=== PATIENT | female | born 1935 | race Caucasian/White ===

== ENCOUNTER → 2017-09-10 | Outpatient (CLI) | payer OTHER, MEDICAID | LOC: M.CT 12:31 → M.LAB 13:00 → M.CT 14:00 | PROVIDERS: Internal Medicine Cardiovascular Disease | DX: I71.2 Thoracic aortic aneurysm, without rupture (principal); R91.1 Solitary pulmonary nodule ==

== ENCOUNTER → 2017-10-21 | Outpatient (CLI) | payer OTHER, MEDICAID | LOC: M.ULTRA 10:10 | DX: K76.9 Liver disease, unspecified (principal); K77 Liver disorders in diseases classified elsewhere ==

== ENCOUNTER → 2017-10-30 | Outpatient (CLI) | payer OTHER, MEDICAID ==
[2017-10-30 10:35] LABS: CALCIUM 9.2 mg/dL (8.5-10.1); POTASSIUM 4.1 mmol/L (3.5-5.1)
== END ==
LOC: M.MRI 10:12 → M.LAB 10:30 → M.MRI 11:30
PROVIDERS: Family Medicine
DX: D35.02 Benign neoplasm of left adrenal gland (principal); I10 Essential (primary) hypertension

== ENCOUNTER → 2018-02-10 | Outpatient (CLI) | payer OTHER, MEDICAID ==
--- NOTE | 2018-02-10 15:44 | 2DMMODE ---
[place] [address] 2 D/M-MODE ECHOCARDIOGRAM Name: TJ POZO Room: [facility]#: [id number] Admission: 02/10/18 Attend Phys: Frank Engle, Discharge: Date of : 35 Date of Service: 02/10/18 1544 Report #: [id number] THIS REPORT FOR: //name// APPROVED REPORT Study performed: 02/10/2018 13:46:16 EXAM: Comprehensive 2D, Doppler, and color-flow Echocardiogram Patient Location: Out-Patient Status: routine BSA: 1.92 HR: 60 bpm BP: 140/78 mmHg Other Information Study Quality: Good Indications Aortic Valve Disease 2D Dimensions LVEF(%): 54.42 (>50%) IVSd: 11.71 (7-11mm) LVOT Diam: 20.93 (18-24mm) LVDd: 50.61 mm PWd: 7.92 (7-11mm) Ascending Ao: 48.29 (22-36mm) LVDs: 36.27 (25-40mm) Aortic Root: 23.70 mm [place]'s LVEF: 54.42 % Volumes Left Atrial Volume (Systole) LA ESV Index: 14.40 mL/m2 Aortic Valve AoV Peak Celestine.: 1.39 m/s AO Peak Gr.: 7.77 mmHg LVOT Max P.91 mmHg AO Mean Gr.: 3.51 mmHg LVOT Mean P.56 mmHg LVOT Max V: 0.85 m/s AO V2 VTI: 29.34 cm LVOT Mean V: 0.58 m/s JESSICA (VTI): 2.70 cm2 LVOT V1 VTI: 23.06 cm AI Hartley: 1.86 m/s2 AI PHT: 671.84 [place] [address] 2 D/M-MODE ECHOCARDIOGRAM Name: TJ POZO Room: [facility]#: [id number] Admission: 02/10/18 Attend Phys: Frank Engle, Discharge: Date of : 35 Date of Service: 02/10/18 1544 Report #: [id number] E/A Ratio: 0.81 MV Decel. Time: 242.42 ms MV E Max Celestine.: 0.71 m/s MV PHT: 70.30 ms MVA (PHT): 3.13 cm2 TDI E/Lateral E': 7.10 E/Medial E': 8.88 Medial E' Celestine.: 0.08 m/s Lateral E' Celestine.: 0.10 m/s Pulmonary Valve PV Peak Celestine.: 1.12 m/s PV Peak Gr.: 5.00 mmHg Tricuspid Valve RAP Estimate: 5.00 mmHg TR Peak Gr.: 19.96 mmHg RVSP: 24.96 mmHg PA Pressure: 24.96 mmHg Left Ventricle The left ventricle is normal size. There is normal LV segmental wall motion. There is normal left ventricular wall thickness. Left ventricular systolic function is normal. The left ventricular ejection fraction is within the normal range. LVEF is 55-60%. Grade I - abnormal relaxation pattern. Right Ventricle The right ventricle is normal size. The right ventricular systolic function is normal. Atria The left atrium size is normal. The right atrium size is normal. Aortic Valve The Aortic valve is sclerotic. Mild to moderate aortic regurgitation. There is no aortic valvular stenosis. Mitral Valve The mitral valve is normal in structure. Mild mitral regurgitation. No evidence of mitral valve stenosis. Tricuspid Valve The tricuspid valve is normal in structure. Mild tricuspid regurgitation. estimated pa pressure 35 [place] [address] 2 D/M-MODE ECHOCARDIOGRAM Name: TJ POZO Room: [facility]#: [id number] Admission: 02/10/18 Attend Phys: Frank Engle, Discharge: Date of : 35 Date of Service: 02/10/18 1544 Report #: [id number] Pulmonic Valve The pulmonary valve is normal in structure. Trace pulmonic regurgitation. Great Vessels The ascending aorta is moderately dilated. IVC is normal in size and collapses with >50% inspiration Pericardium There is no pericardial effusion. <Conclusion> LVEF is 55-60%. The Aortic valve is sclerotic. Mild to moderate aortic regurgitation. Mild mitral regurgitation. Mild tricuspid regurgitation. estimated pa pressure 35 mm Hg The ascending aorta is moderately dilated. <ELECTRONICALLY SIGNED> By: Solomon Spencer MD, [facility] 02/10/18 1544 1544 1544 Solomon Spencer MD, [facility] /INF
== END ==
LOC: M.CRD 13:22
DX: I08.3 Combined rheumatic disorders of mitral, aortic and tricuspid valves (principal); I71.2 Thoracic aortic aneurysm, without rupture

== ENCOUNTER → 2018-04-28 | Outpatient (CLI) | payer OTHER, MEDICAID | LOC: M.CT 04-22 09:18 | DX: E04.1 Nontoxic single thyroid nodule (principal); M85.89 Other specified disorders of bone density and structure, multiple sites; D18.03 Hemangioma of intra-abdominal structures; D35.00 Benign neoplasm of unspecified adrenal gland; K76.89 Other specified diseases of liver; Z78.0 Asymptomatic menopausal state; Z90.49 Acquired absence of other specified parts of digestive tract ==

== ENCOUNTER → 2020-11-27 | Outpatient (CLI) | payer OTHER, MEDICAID | LOC: M.RAD 10:57 | PROVIDERS: ATTEND Family Medicine | DX: M85.88 Other specified disorders of bone density and structure, other site (principal); Z78.0 Asymptomatic menopausal state ==